=== PATIENT | female | born 2000 ===

== ENCOUNTER 2021-06-22 10:35 | Outpatient (CLI) | payer OTHER | END 2021-06-22 11:35 | disposition home or self-care (01) | LOC: PRENATAL 10:35 | PROVIDERS: ATTEND Obstetrics & Gynecology Maternal & Fetal Medicine | DX: O35.0XX1 Maternal care for (suspected) central nervous system malformation in fetus, fetus 1 (principal); O35.3XX1 Maternal care for (suspected) damage to fetus from viral disease in mother, fetus 1; O98.512 Other viral diseases complicating pregnancy, second trimester; O28.1 Abnormal biochemical finding on antenatal screening of mother; Z36.89 Encounter for other specified antenatal screening; Z3A.21 21 weeks gestation of pregnancy ==

== ENCOUNTER 2021-08-13 14:20 | Outpatient (CLI) | payer OTHER ==
[2021-08-13] MEDS ORDERED: PRENATAL CAPLE1 EAC1 PO (14:33)
== END 2021-08-14 10:05 | disposition home or self-care (01) ==
LOC: OBS/DEL 14:20
PROVIDERS: ATTEND Specialist
DX: O36.8130 Decreased fetal movements, third trimester, not applicable or unspecified (principal); Z3A.29 29 weeks gestation of pregnancy

== ENCOUNTER 2021-08-19 02:09 | Outpatient (CLI) | payer OTHER ==
[~2021-08-19 02:09] MED LIST: PRENATAL CAPLE1 EAC1 PO
[2021-08-19] MEDS ORDERED: PRENATAL CAPLE1 EAC1 PO (03:47)
== END 2021-08-19 11:00 | disposition home or self-care (01) ==
LOC: OBS/DEL 02:09
PROVIDERS: ATTEND Specialist
DX: O36.8130 Decreased fetal movements, third trimester, not applicable or unspecified (principal); O26.893 Other specified pregnancy related conditions, third trimester; R10.2 Pelvic and perineal pain; Z3A.30 30 weeks gestation of pregnancy

== ENCOUNTER 2021-10-25 06:02 | Inpatient (IN) | payer OTHER ==
[~2021-10-25] VITALS: Ht 160 cm; Wt 62.6 kg
[2021-10-27] MEDS ORDERED: CLOTRIMAZOLE-BE15 G1 (08:20)
== END 2021-10-27 14:13 | disposition home or self-care (01) | DRG 807 ==
LOC: OB/GYN 06:02 → LDR 06:02 → OB/GYN 16:57
PROVIDERS: ADMIT Specialist; ATTEND Specialist
PROC: 10E0XZZ Delivery of Products of Conception, External Approach (ICD-10-PCS; principal; 2021-10-25)
PROC: 0W8NXZZ Division of Female Perineum, External Approach (ICD-10-PCS; 2021-10-25)
PROC: 4A1HXCZ Monitoring of Products of Conception, Cardiac Rate, External Approach (ICD-10-PCS; 2021-10-25)
DX: O80 Encounter for full-term uncomplicated delivery (principal); Z37.0 Single live birth; Z3A.39 39 weeks gestation of pregnancy; Z20.822 Contact with and (suspected) exposure to COVID-19